=== PATIENT | female | born 1970 | race African-American/Black ===

== ENCOUNTER 2018-06-27 12:55 | Outpatient (CLI) | payer OTHER ==
--- NOTE | 2018-06-27 15:11 | RAD ---
LUMBAR SPINE FOUR VIEWS: History: 47-year-old female with history of low back pain with radiation down right leg. FINDINGS: Moderate levoscoliosis of the upper lumbar/lower thoracic vertebral column. No abnormal translation b etween flexion and extension. Mild disc osteophytosis and moderate facet arthrosis. IMPRESSION: Levoscoliosis upper lumbar/lower thoracic vertebral column with moderate spondylosis without evidence for abnormal translation between flexion and extension. POS: [facility]
--- NOTE | 2018-06-27 15:18 | RAD ---
CERVICAL SPINE FIVE VIEWS INCLUDING FLEXION AND EXTENSION LATERAL VIEWS: History: 47-year-old female with history of neck pain with radiation down right arm with numbness. 15-year-ago history of cervical fusion. FINDINGS: Anterior cervical fusion at C5, C6, and C7. Severe spondylosis at C3-4 and C4-5 with marked disc spac e narrowing and extensive hypertrophic osteophytosis with mild stable retrolisthesis of C3 on C4 and C4 on C5 but no significant abnormal translation between flexion and extension. IMPRESSION: Spondylosis with mild retrolisthesis, stable, a C3-4 and C4-5. Anterior cervical fusion changes at C5 , C6, and C7. No prevertebral soft tissue swelling. POS: [facility]
--- NOTE | 2018-06-27 15:49 | MRI ---
MRI LUMBAR SPINE NONCONTRAST: HISTORY: Low back pain. Right leg radiculopathy. FINDINGS: The conus medullaris has a normal appearance. Vertebral body heights and AP alignment are maintaine d. Left convex curvature correlates with findings on prior radiographs. Mild to moderate fluid within the lower facets. The central canal and neural foramina are patent. At the lumbosacral junction, there is desiccation of the intervertebral disks. An annular fissure is apparent at the posterior aspect of the disk with minimal posterior central disk protrusion and infe rior extension. No focal nerve root compression. IMPRESSION: 1. Posterior annular disk tear and minimal protrusion at the lumbosacral junction without nerve root compression. 2. Mild degenerative facet changes of the lumbar spine. POS: [facility]
--- NOTE | 2018-06-27 15:52 | MRI ---
MRI THORACIC SPINE WITHOUT CONTRAST: Date: 06/27/18 COMPARISON: None. HISTORY: Thoracic pain, history of compression fracture. TECHNIQUE: Multiplanar, multisequence MR imaging of the thoracic spine obtained without contrast. FINDINGS: The sagittal STIR imaging demonstrates no focal area of osseous marrow edema. There is prominent dextroscoliosis of the thoracic spine, not well evaluated on this examination. Anterior diskectomy and fusion hardware is present within the cervical spine at the C5-6/C6-7 level, not well evaluated on this examination. No MR evidence of acute fracture noted. T1-2: No significant central canal or neural foraminal stenosis. Mild right-sided facet hypertrophy. T2-3: There is disc space narrowing. There is facet hypertrophy on the right. No significant central canal or neural foraminal stenosis. T3-4: There is disc space narrowing and facet hypertrophy on the right with no significant central canal or neural foraminal stenosis. T4-5: No central canal or neural foraminal stenosis. T5-6: No significant central canal or neural foraminal stenosis. T6-7: No significant central canal or neural foraminal stenosis. T7-8: No significant central canal or neural foraminal stenosis. T8-9: Mild left-sided facet hypertrophy. No significant central canal or neural foraminal stenosis. T9-10: Mild left sided facet hypertrophy. No significant central canal or neural foraminal stenosis. T10-11: No central canal or neural foraminal stenosis. T11-12: No central canal or neural foraminal stenosis. T12-L1: No significant central canal or neural foraminal stenosis. No focal area of abnormal signal intensity is identified within the imaged spinal cord Probable bilateral small renal cysts present. IMPRESSION: Prominent scoliotic curvature of the thoracic spine with no significant central canal or neural mckay inal stenosis. No MR evidence of acute fracture. POS: [facility]
== END 2018-06-27 12:56 | disposition home or self-care (01) ==
LOC: TBSIIMAG 12:55
PROVIDERS: ATTEND Surgery
DX: M54.2 Cervicalgia (principal); M54.5 Low back pain; M54.6 Pain in thoracic spine; M47.892 Other spondylosis, cervical region; Z98.1 Arthrodesis status; M43.12 Spondylolisthesis, cervical region; M41.9 Scoliosis, unspecified; M47.896 Other spondylosis, lumbar region; M51.86 Other intervertebral disc disorders, lumbar region; M51.26 Other intervertebral disc displacement, lumbar region
CPT/HCPCS: 72050; 72120; 72146; 72148